=== PATIENT | male | born 1965 | race Caucasian/White ===

== ENCOUNTER → 2018-05-22 | Outpatient (CLI) | payer BC | END | disposition home or self-care (01) | LOC: CFH 11:32 | PROVIDERS: ATTEND Internal Medicine | DX: N63.10 Unspecified lump in the right breast, unspecified quadrant (principal); N63.20 Unspecified lump in the left breast, unspecified quadrant; N62 Hypertrophy of breast; L72.3 Sebaceous cyst; Z80.3 Family history of malignant neoplasm of breast | CPT/HCPCS: 76642; 77066 ==